=== PATIENT | female | born 1955 | race Caucasian/White ===

== ENCOUNTER → 2018-04-30 | Outpatient (CLI) | payer OTHER | LOC: M RAD 09:43 | DX: Z12.31 Encounter for screening mammogram for malignant neoplasm of breast (principal); Z85.3 Personal history of malignant neoplasm of breast; N63.20 Unspecified lump in the left breast, unspecified quadrant | CPT/HCPCS: 77067 ==

== ENCOUNTER → 2018-05-19 | Outpatient (REF) | payer OTHER | LOC: M SFHCLERA 17:32 | DX: R53.81 Other malaise (principal) ==

== ENCOUNTER → 2018-06-29 | Outpatient (CLI) | payer OTHER ==
[~2018-06-29] MED LIST: CENTCHW4 PO; CETI10TA PO; FLON1SPR; GLUCTAB4 PO; MONT10TA2 PO; MUCI600T31 PO; TAMO20TA8 PO
--- NOTE | 2018-06-29 11:32 | REP ---
Clinical: Lung screening. History of nicotine dependence. Comparison: None Technique: Axial low-dose noncontrast images from the thoracic inlet to the upper abdomen using lung screening technique. Findings: The lung eduardo are well-aerated. There is a 5 mm noncalcified nodule in the posterior periphery of the right lower lobe (image 67) along with smaller 2-3 mm noncalcified densities in the subpleural left lower lobe. A few scattered calcified granulomata are identified along with minimal scattered linear scarring. No consolidation, pleural effusion/reaction or pneumothorax. Tracheobronchial tree is patent. Impression: Lung-RADS category III. Management recommendations include 6-month low-dose CT follow-up examination with probability of malignancy at 1-2%. Electronically Signed by Kosta Trent MD 06/29/2018 11:23 A
--- NOTE | 2018-06-29 12:29 | REP ---
BILATERAL HIP SERIES: Four views. HISTORY: Bilateral hip pain. FINDINGS: There is mild diffuse osteopenia. Femoral heads are smooth and rounded. Hip joint spaces are preserved. There is some greater trochanteric spurring on the right. Periarticular soft tissues are otherwise unremarkable. There is a small bone island in the femoral head on the left. Visualized pelvis is unremarkable. IMPRESSION: Mild greater trochanteric spurring on the right. Diffuse osteopenia. Otherwise negative. Electronically Signed by Alfredito Barth MD 06/29/2018 04:11 P
--- NOTE | 2018-06-29 15:30 | REP ---
WHOLE BODY BONE SCAN: Following the intravenous administration of 21.1 millicuries technetium 99m MDP, patient's whole body is imaged in the anterior and posterior projections. Additional oblique and lateral images are also performed. COMPARISON: Comparison is made with a prior study of 05/04/2016. Arthritic uptake is again noted, specifically in the wrists bilaterally, shoulders, left sternoclavicular joint, left knee and right foot. There is no compelling scintigraphic evidence of osseous metastases. There is again mild curvature of the lower thoracic spine towards the right. Renal and bladder activity are seen. IMPRESSION: No compelling scintigraphic evidence of osseous metastases with no significant change compared to the prior study of 05/04/2016. Electronically Signed by Leon Shay MD 07/05/2018 11:09 P
== END ==
LOC: M RAD 10:09
PROVIDERS: ATTEND Internal Medicine Medical Oncology
DX: Z12.2 Encounter for screening for malignant neoplasm of respiratory organs (principal); Z85.3 Personal history of malignant neoplasm of breast; M85.88 Other specified disorders of bone density and structure, other site; M25.751 Osteophyte, right hip; M25.551 Pain in right hip; M25.552 Pain in left hip
CPT/HCPCS: 73502; G0297

== ENCOUNTER → 2018-07-26 | Outpatient (REF) | payer OTHER ==
[2018-07-29 14:32] LABS: ASPERGILLUS FLAVUS ABY Negative (Neg:<1:1); ASPERGILLUS FUMIGATUS ABY Negative (Neg:<1:1); ASPERGILLUS NIGER ABY Negative (Neg:<1:1)
[2018-07-31 00:19] LABS: ANCA-ATYPICAL <1:20 titer (Neg:<1:20); ASPERGILLUS FUMIGATUS AB Negative (Negative); AUREOBASIDIUM PULLULANS Negative (Negative); BLASTOMYCES ANTIBODY LEVEL Negative (Neg:<1:1); CRYPTOCOCCUS ANTIGEN SER Negative (Negative); CYTOPLASMIC NEUTROP AB ANCA-C <1:20 titer (Neg:<1:20); HISTOPLASMOSIS ANTIBODY Negative (Neg:<1:1); MICROPOLYSPORA FAENI AB Negative (Negative); PERINUCLEAR AB ANCA-P <1:20 titer (Neg:<1:20); PIGEON SERUM AB Negative (Negative); THERMOACTINOMYCES SACCHARI Negative (Negative); THERMOACTINOMYCES VULGARIS Negative (Negative)
== END ==
LOC: M LAB REF 13:08
PROVIDERS: ATTEND Internal Medicine Pulmonary Disease
DX: R91.8 Other nonspecific abnormal finding of lung field (principal)

== ENCOUNTER → 2019-02-01 | Outpatient (CLI) | payer OTHER ==
--- NOTE | 2019-02-01 09:01 | REP ---
Clinical: Follow up abnormal lung findings. Comparison: 06/29/2018. Technique: Axial noncontrast images from the thoracic inlet to the upper abdomen with coronal and sagittal re-formations. Findings: 5 mm noncalcified nodule in the posterior right lower lobe remains stable. Smaller scattered densities up to approximately 2.5 mm are also appreciated and similar to prior examination. No further consolidation, larger nodule or abnormality. Ossified granuloma in the apical right lower lobe consistent with prior granulomatous disease. No effusion. No pneumothorax. Tracheobronchial tree is patent. Atherosclerotic changes to the thoracic aorta and coronary arteries noted without aortic aneurysm or cardiomegaly. No pericardial effusion. No adenopathy. Musculoskeletal structures demonstrate age-related changes. Impression: Stable findings including 5 mm noncalcified nodule in the right lower lobe. 12-month follow-up examination is recommended based on Fleischner Society criteria. Electronically Signed by Kosta Trent MD 02/01/2019 08:52 A
== END ==
LOC: M RAD 08:10
PROVIDERS: ATTEND Internal Medicine Pulmonary Disease
DX: R91.8 Other nonspecific abnormal finding of lung field (principal); I70.0 Atherosclerosis of aorta

== ENCOUNTER → 2019-05-01 | Outpatient (CLI) | payer OTHER ==
--- NOTE | 2019-05-01 10:03 | REPMRS ---
Patient History The patient states she had a clinical breast exam in 2018. Patient is postmenopausal, has history of cancer in the left breast at age 51, and had previous chemotherapy. Family history of unknown cancer at age 65 in mother, prostate cancer at age 81 in father, unknown cancer at age 57 in sister. Malignant lumpectomy of the left breast, 2006. Chemotherapy. Took estrogen for 2 years. Took progesterone for 2 years. Taking tamoxifen for 10 years. Digital Mammo Screening Bilat: May 01, 2019 - Exam #: [id number] Bilateral CC and MLO view(s) were taken. Technologist: Milly Alberto, Technologist Prior study comparison: April 30, 2018, bilateral digital mammo screening bilat performed at [facility]. April 27, 2017, bilateral digital mammo screening bilat performed at [facility]. April 26, 2016, bilateral digital mammo screening bilat performed at [facility]. FINDINGS: There are scattered fibroglandular densities. There are surgical clips noted in the right axilla. There is a stable nodule projecting in the upper outer quadrant of the left breast. These findings are unchanged. There has been no change in the appearance of the mammogram from the prior studies. There is a mild amount of scattered fibroglandular density which is fairly symmetric. There is no interval development of dominant mass, architectural distortion, or grouped microcalcification suggestive of malignancy. 3-D tomosynthesis shows no additional findings. Assessment: BI-RADS/ACR category 2 mammogram. Benign Findings. Recommendation Routine screening mammogram of both breasts in 1 year (for women over age 40). This mammogram was interpreted with the aid of an FDA-approved computer-aided dectection system. Electronically Signed By: Jarvis Barth MD 05/01/19 [id number]
== END ==
LOC: M RAD 08:56
PROVIDERS: ATTEND Family Medicine
DX: Z12.31 Encounter for screening mammogram for malignant neoplasm of breast (principal); Z78.0 Asymptomatic menopausal state; Z85.3 Personal history of malignant neoplasm of breast; Z80.9 Family history of malignant neoplasm, unspecified; Z92.21 Personal history of antineoplastic chemotherapy

== ENCOUNTER → 2019-12-09 | Outpatient (REF) | payer MEDICARE ==
[~2019-12-09] MED LIST changes: +MONT10TA10 PO; -MONT10TA2 PO
== END ==
LOC: M LAB REF 18:21
PROVIDERS: ATTEND Physician Assistant
DX: L72.0 Epidermal cyst (principal)

== ENCOUNTER → 2020-01-09 | Outpatient (REF) | payer MEDICARE ==
[~2020-01-09] MED LIST changes: -MONT10TA10 PO; +MONT10TA4 PO
== END ==
LOC: M LAB REF 09:13
PROVIDERS: ATTEND Dermatology
DX: D23.71 Other benign neoplasm of skin of right lower limb, including hip (principal)

== ENCOUNTER → 2020-04-10 | Outpatient (CLI) | payer MEDICARE ==
--- NOTE | 2020-04-10 12:24 | REPMRS ---
Patient History The patient states she has not had a clinical breast exam in over a year. Patient is postmenopausal and had previous chemotherapy. Family history of unknown cancer at age 65 in mother, prostate cancer at age 81 in father, unknown cancer at age 57 in sister. Benign lumpectomy of the right breast, 2006. Chemotherapy. Took estrogen for 2 years. Took progesterone for 2 years. Took tamoxifen for 10 years. 3D TOMOSYNTHESIS WAS PERFORMED. [facility] lifetime risk for breast cancer is 6.5%. VOLPARA DENSITY B. Digital Woman Screen Mammo: April 10, 2020 - Exam #: [id number] Bilateral CC and MLO view(s) were taken. Technologist: Shonna Baez, Technologist Prior study comparison: May 01, 2019, bilateral digital mammo screening bilat, performed at [facility]. April 30, 2018, bilateral digital mammo screening bilat, performed at [facility]. FINDINGS: There are scattered fibroglandular densities. There has been no change in the appearance of the mammogram from the prior studies. There is a mild amount of residual fibroglandular tissue which is fairly symmetric. There is no interval development of dominant mass, architectural distortion, or clustered microcalcification suggestive of malignancy. Assessment: BI-RADS/ACR category 1 mammogram. Negative Mammogram. Recommendation Routine screening mammogram in 1 year (for women over age 40). This mammogram was interpreted with the aid of an FDA-approved computer-aided dectection system. Electronically Signed By: Leon Shay MD 04/10/20 [id number]
== END ==
LOC: M WHC 10:58
PROVIDERS: ATTEND Internal Medicine Medical Oncology
DX: Z12.31 Encounter for screening mammogram for malignant neoplasm of breast (principal); Z85.3 Personal history of malignant neoplasm of breast; Z92.21 Personal history of antineoplastic chemotherapy; Z80.9 Family history of malignant neoplasm, unspecified

== ENCOUNTER → 2020-04-24 | Outpatient (CLI) | payer MEDICARE ==
--- NOTE | 2020-04-24 16:48 | REP ---
INDICATION: HX RT BREAST CA, LT BREAST NODULE. Palpable lump left breast. History of right breast cancer. COMPARISON: Ultrasound 09/25/2013, mammogram 04/10/2020. TECHNIQUE: Real-time sonographic evaluation of left breast performed in its entirety.. FINDINGS: Three morphologically normal-appearing lymph nodes are seen in the left axillary tail. All demonstrate normal size in short axis dimension less than 1 cm. All demonstrate a fatty hilum. Subtle superficial subcutaneous hyperechoic oval nodular structure at 9 o'clock 5 cm from the nipple measures 8 x 7 x 3 mm, and another at 9 o'clock about 9 cm from the nipple measures about 1.5 x 1.4 x 0.4 cm. These likely represent subtle lipomas. Recent mammogram 04/10/2020 showed no suspicious abnormality. IMPRESSION: BIRADS/ACR category 2, benign. Morphologically normal appearing nonenlarged left axillary lymph nodes visualized. Two subtle hyperechoic subcutaneous oval nodules at 9 o'clock are most compatible with benign lipomas. RECOMMENDATION: Clinical correlation and follow-up recommended. A benign-appearing ultrasound should not deter biopsy if there is a clinically suspicious palpable mass present. Follow-up bilateral mammogram recommended April 2021. <Electronically signed by Leon Shay > 04/24/20 [id number]
== END ==
LOC: M WHC 11:10
PROVIDERS: ATTEND Internal Medicine Medical Oncology
DX: N63.25 Unspecified lump in the left breast, overlapping quadrants (principal); Z85.3 Personal history of malignant neoplasm of breast

== ENCOUNTER → 2020-05-08 | Outpatient (CLI) | payer MEDICARE ==
--- NOTE | 2020-05-08 08:30 | REP ---
INDICATION: BREAST CANCER FILE ROOM. COMPARISON: Chest CT 02/01/2019, low-dose CT 06/29/2018 TECHNIQUE: Low-dose chest CT protocol FINDINGS: There is a stable 5 mm nodule subpleural region right lower lobe medial basal segment seen on image 62 and unchanged from the previous 2 studies. There are least 3 nodules in the left lower lobe subpleural region at 3 mm in size unchanged and a few other scattered 2 mm nodules in both lungs. No new nodules. No pleural based mass, calcified pleural plaque, pleural thickening or effusion no acute infiltrate heart not grossly enlarged. The aorta is calcified but without gross aneurysm. A calcified granuloma is seen in the superior segment the right lower lobe, unchanged. Some curvilinear fibro atelectatic change noted in the medial segment right middle lobe. IMPRESSION: Lung-RADS category 2 benign, benign findings. Stable examination with multiple noncalcified nodules. The largest is a 5 mm right lower lobe multiple other 3 mm and smaller nodules peripherally in both lungs but stable. Patients with this category of finding of less than 1% chance of malignancy at the time of the examination. Recommend annual low-dose screening lung CT for patients at high risk of lung malignancy. Please recall that a low-dose lung screening CT is insensitive for mediastinal, other soft tissue or bone abnormalities related to metastatic cancer. <Electronically signed by Hakeem Villalpando > 05/08/20 [id number]
== END ==
LOC: M RAD 07:29
PROVIDERS: ATTEND Internal Medicine Medical Oncology
DX: C50.919 Malignant neoplasm of unspecified site of unspecified female breast (principal); Z87.891 Personal history of nicotine dependence; Z12.2 Encounter for screening for malignant neoplasm of respiratory organs